=== PATIENT | male | born 1965 | race Caucasian/White ===

== ENCOUNTER 2024-12-19 18:12 | Emergency (ER) | payer MEDICAID ==
[~2024-12-19] VITALS: Ht 170.2 cm; Wt 74.8 kg
[2024-12-19 18:14] VITALS: O2SAT 98
[2024-12-19 18:32] VITALS: BP 144/70; PULSE 90; RESP 16; TEMP 36.7; O2SAT 98
[2024-12-20] MEDS: KETOROLAC 30MG/ML VIAL IM ONE (03:37)
[2024-12-20] MEDS ORDERED: KETO10TA2 MT (05:30)
== END 2024-12-20 06:02 | disposition home or self-care (01) ==
LOC: ER 18:32
DX: M54.50 Low back pain, unspecified (principal); M25.551 Pain in right hip; M25.571 Pain in right ankle and joints of right foot; M79.671 Pain in right foot; F32.A Depression, unspecified; Z98.890 Other specified postprocedural states
CPT/HCPCS: 99285; 73552; 73610; 73630; 72192; 96372; J1885; Z7610

== ENCOUNTER 2024-12-20 07:27 | Emergency (ER) | payer MEDICAID ==
[~2024-12-20] VITALS: Ht 175.3 cm; Wt 68.0 kg
[~2024-12-20 07:27] MED LIST: KETO10TA2 MT
[2024-12-20 08:12] VITALS: BP 128/69; TEMP 36.6; O2SAT 98
[2024-12-20 08:13] VITALS: PULSE 82; RESP 20; O2SAT 98
[2024-12-20] MEDS ORDERED: KETOROLAC 30MG/ML VIAL IV STA (09:43)
[2024-12-20] MEDS: KETOROLAC 30MG/ML VIAL IM STA (10:12)
[2024-12-20] MEDS: HYDROCODONE/ACETAMINOPHEN 5/325MG TABLET PO ONE (12:05)
== END 2024-12-20 12:39 | disposition home or self-care (01) ==
LOC: ER 08:07
DX: M79.604 Pain in right leg (principal); E78.5 Hyperlipidemia, unspecified; I10 Essential (primary) hypertension
CPT/HCPCS: 96372; 99283; J1885; Z7610 ×2; A4606

== ENCOUNTER 2025-04-15 20:07 | Emergency (ER) | payer MEDICAID ==
[~2025-04-15] VITALS: Ht 172.7 cm; Wt 90.0 kg
[2025-04-15 20:22] VITALS: O2SAT 100
[2025-04-15] MEDS: HYDROCODONE/ACETAMINOPHEN 5/325MG TABLET PO ONE (21:03)
[2025-04-15] MEDS: DEXAMETHASONE 4MG TABLET PO ONE (21:03)
[2025-04-15] MEDS: LIDOCAINE 5% PATCH TOP SCH (21:03)
[2025-04-15] MEDS ORDERED: LIDO-53 TP (21:58)
[2025-04-15] MEDS ORDERED: HYDR-4001 MT (21:58)
[2025-04-15] MEDS ORDERED: CYCL5TAB3 MT (21:58)
[2025-04-15 23:07] VITALS: BP 99/77; PULSE 95; RESP 18; TEMP 36.9; O2SAT 100
== END 2025-04-15 23:08 | disposition home or self-care (01) ==
LOC: ER 20:07
DX: G89.29 Other chronic pain (principal); M54.50 Low back pain, unspecified; E78.00 Pure hypercholesterolemia, unspecified; Z79.899 Other long term (current) drug therapy
CPT/HCPCS: 99284; J8540